=== PATIENT | female | born 1950 | race Asian ===

== ENCOUNTER 2016-08-27 10:45 | Day surgery (SDC) | payer OTHER ==
[~2016-08-27] VITALS: Ht 152.4 cm; Wt 56.7 kg
[~2016-08-27 10:45] MED LIST: 0.9% Sodium Chloride 1,000 ML IV PRN; Sodium Chloride LOK Flush 10 mL Syringe IV PRN; fentaNYL-PF 50 mCg/mL 2 mL Inj IVPUSH PRN
[2016-08-27 11:33] VITALS: BP 133/77; PULSE 59; RESP 14; O2SAT 98
--- NOTE | 2016-08-27 12:45 | PCM.ENDCOL ---
Colonoscopy Date of Service: Aug 27, 2016 Physician Hector Bustillos MD Pre Procedure Diagnosis: Screening FIT blood positive Post Procedure Dx & Findings: Polyp hemorrhoids Procedure Colonoscopy PROCEDURE IN DETAIL: Prep adequate Withdrawal time 9 minutes After unremarkable rectal examination the Olympus video colonoscope was inserted patient's anal canal and was advanced to cecum. Landmarks were identified including the ileocecal valve and appendiceal orifice. Scope was withdrawn systematically. Visualized colonic mucosa showed healthy shiny mucosa with normal healthy-appearing vasculature. In the sigmoid colon there are 2 polyps. Both were 4 mm in size. Both removed completely using cold snare. In the rectum retroflexion was done which showed hemorrhoids. Anal canal was inspected carefully on the way out and hemorrhoids noted. Impression Polyps times 2 status post complete removal Hemorrhoids Recommendation Repeat colonoscopy in 5 years Presedation Assessment Risks and Benefits Informed consent was obtained from the patient after all risks and benefits including but not limited to drug reaction, infection, pain, bleeding, perforation, as well as alternatives were discussed. Patient monitoring Continuous pulse oximetry, cardiac monitoring, blood pressure monitoring, IV access, and oxygen at 2L per nasal cannula. Periprocedural Fentanyl: Fentanyl 75mcg Incrementally Midazolam: Midazolam 3mg Incrementally Complications There were no periprocedural complications identified. Post Procedure Plan Post Procedure Recommendations 1. Restrict activities today. 2. Resume normal activities in the morning. 3. Resume medications. 4. Patient informed of normal post procedure side effects as bloating, drowsiness, blood streaking in the stool. 5. average risk CRCS. If colon polyps come back as: -Hyperplastic- can repeat colonoscopy in 10 years -Tubular adenoma- repeat colonoscopy in 5 years -Tubulovillous/villous adenoma- repeat colonoscopy in 3 years -If any dysplasia- return to clinic as soon as possible 6. Please don't hesitate to call me with any questions. Hector Bustillos MD Aug 27, 2016 12:45
[2016-08-27 12:48] VITALS: BP 112/67; PULSE 62; RESP 16; O2SAT 98
[2016-08-27 12:57] VITALS: BP 115/78; PULSE 73; RESP 16; O2SAT 99
[2016-08-27 13:07] VITALS: BP 116/73; PULSE 57; RESP 16; O2SAT 99
--- NOTE | 2016-08-28 17:59 | PATH ---
SURGICAL PATHOLOGY Attending Physician:Hector Bustillos M.D. CASE STATUS: Signed Out PATIENT NAME: ROSANA DELVALLE PID: [id number] : 1950 DATE COLLECTED:08/27/2016 22:43 SPECIMEN: Colon, Polyp CLINICAL HISTORY: 1). SIGMOID POLYP X1 FINAL DIAGNOSIS: 1.SIGMOID COLON, POLYP, BIOPSY: TUBULAR ADENOMA. ICD10 D12.5 GROSS DESCRIPTION: Received in formalin, labeled with the patient' s name and "sigmoid", are two fragments of wilkins, soft tissue ranging from 0.3 x 0.2 x 0.2 cm to 0.5 x 0.2 x 0.2 cm. The fragments are totally submitted in one cassette. [id number]) MICRO DESCRIPTION: See diagnosis. ICD-9 CODES: CPT CODES: 1: 57774 Electronically Signed Out Erica Paulino MD [facility] [address], [place] [address] Technical component performed at [facility], [facility] [address], [place], [address]
== END 2016-08-27 23:59 | disposition home or self-care (01) ==
LOC: END 10:45
PROVIDERS: ATTEND Internal Medicine
DX: D12.5 Benign neoplasm of sigmoid colon (principal); K64.8 Other hemorrhoids; R19.5 Other fecal abnormalities
CPT/HCPCS: 45385; 99153; G0500; J2250; J3010; J7030